=== PATIENT | male | born 1945 | race Caucasian/White ===

== ENCOUNTER 2018-09-07 07:26 | Day surgery (SDC) | payer MEDICARE, SELFPAY ==
[2018-09-07] VITALS (8 sets, daily range): BP systolic 102–162; BP diastolic 63–72; PULSE 62–72; RESP 10–16; TEMP 36.2–36.6; O2SAT 92–99; BMI 26.4
[2018-09-07] MEDS: SODIUM CHLORIDE 0.9% 1,000 ML 84 ML IV (08:00)
[2018-09-07] MEDS: MIDAZOLAM 5 MG/5 ML VIAL IV (08:22)
[2018-09-07] MEDS: fentaNYL 250 MCG/5 ML INJ IV (08:22)
--- NOTE | 2018-09-07 08:41 | PM.HP.1 ---
History of Present Illness Chief complaint: [id number] Colonoscopy Patient History Medical History Hypercholesterolemia (Acute) Meds Home Medications Medication Instructions Recorded Confirmed Type aspirin [Aspir-81] 81 mg PO DAILY #0 05/01/10 09/07/18 History simvastatin 20 mg PO QPM #0 05/01/10 09/07/18 History Allergies Allergy/AdvReac Type Severity Reaction Status Date / Time No Known Drug Allergies Allergy Verified 09/07/18 07:40 Exam Vital Signs (past 8 hours): - 09/07/18 07:51 Temperature 97.8 F Pulse Rate 72 Respiratory Rate 16 Blood Pressure 162/72 H Pulse Oximetry 96 Oxygen Delivery Method Room Air Narrative Exam Narrative: Chest clear to auscultation percussion cardiac exam reveals no S3 or murmur Oropharynx free of lesions Assessment & Plan Assessment & Plan narrative: Assessment: History of adenomatous colon polyps Plan: Colonoscopy today. Risks benefits alternatives have been explained.
--- NOTE | 2018-09-07 09:02 | PM.OP.ENDO ---
Operative Date/Time/Diagnoses Date of procedure: 09/07/18 Time of procedure: 09:02 Pre-op diagnosis: See indication and findings Procedure & Clinicians Study performed: Colonoscopy Same procedure as scheduled: Yes Indications: History of colon polyps Surgeon: Boo Sidhu Procedure Notes Procedure in detail: After informed consent was obtained the patient was placed in the left lateral decubitus position. The video colonoscope was introduced into the rectum slowly advanced to the cecum. Preparation was good. On slow withdrawal mucosa was carefully examined. The scope was removed. The patient tolerated the procedure well. Blood loss none Complications none Sedation Fentanyl 100 mcg Versed 5 mg IV titration Total sedation time 22 min Findings 1. Normal colonoscopy to cecum other than rare scattered diverticula. If he in fact has a history of colon polyps he should have 1 final colonoscopy 5 years from now. Cc: Dr. Spence
--- NOTE | 2018-09-07 09:18 | SUR.PHASEI ---
Right hearing aid in place on arrival; left hearing aid returned/placed by patient. Sitting up, tolerated fluids well, oriented. VSS
--- NOTE | 2018-09-07 09:26 | SUR.PHASEI ---
patient doesn't know what his normal blood pressure is. HOB up 45%, denies dizziness/lightheadedness.
--- NOTE | 2018-09-07 10:09 | SUR.PHASEII ---
BP significantly lower than Preop however is without s/s of problem when asked. Awaiting okay from Dr Sidhu to discharge.
--- NOTE | 2018-09-07 10:27 | SUR.PHASEII ---
Spoke with Dr Sidhu about VS and he gives order to discharge the patient.
== END 2018-09-07 10:31 | disposition home or self-care (01) ==
PROVIDERS: PCP Internal Medicine; Visit Provider Internal Medicine Gastroenterology
PROC: 0DJD8ZZ Inspection of Lower Intestinal Tract, Via Natural or Artificial Opening Endoscopic (ICD-10-PCS; CPT 45378; principal; 2018-09-07 08:30)
DX: Z86.010 Personal history of colon polyps (principal); K57.30 Diverticulosis of large intestine without perforation or abscess without bleeding; E78.00 Pure hypercholesterolemia, unspecified
CPT/HCPCS: G0105; J2250; J3010

== ENCOUNTER → 2020-10-15 09:22 | Outpatient (CLI) | payer MEDICARE, SELFPAY ==
--- NOTE | 2020-10-15 09:23 | DI.US.S_ITS ---
PROCEDURE: US RETRO PERITONEAL LIMITED INDICATIONS: HX SMOKING TECHNIQUE: Real time scanning was performed of the aorta and iliac arteries, with image documentation. COMPARISON: [facility], , ABD AORTA ANEURYSM SCREENING, 07/04/2015, 14:55. FINDINGS: Aorta: Proximal aortic diameter measures 2.3 cm. Mid-aorta measures 1.6 cm. Distal aortic diameter is 1.6 cm. Iliac arteries: Right common iliac artery measures 0.9 cm. Left common iliac artery measures 1.1 cm. IMPRESSION: No sonographic evidence of abdominal aortic aneurysm. Dictated by: Navya Barbosa MD, PhD on 10/15/2020 at 17:43 Approved by: Navya Barbosa MD, PhD on 10/15/2020 at 17:44
== END ==
PROVIDERS: PCP Student in an Organized Health Care Education/Training Program; Referring Provider Student in an Organized Health Care Education/Training Program; Visit Provider Student in an Organized Health Care Education/Training Program
DX: I77.811 Abdominal aortic ectasia (principal); Z87.891 Personal history of nicotine dependence
CPT/HCPCS: 76775

== ENCOUNTER → 2020-10-16 08:06 | Outpatient (CLI) | payer MEDICARE, SELFPAY ==
[2020-10-16] MEDS: COVID-19 VACC #1, MRNA(MOD) 100 MCG/0.5 ML VIAL IM (08:11)
== END ==
PROVIDERS: PCP Student in an Organized Health Care Education/Training Program; Visit Provider Internal Medicine
DX: Z23 Encounter for immunization (principal)
CPT/HCPCS: 0011A; 91301

== ENCOUNTER → 2020-11-13 07:57 | Outpatient (CLI) | payer MEDICARE, SELFPAY ==
[2020-11-13] MEDS: COVID-19 VACC #2, MRNA(MOD) 100 MCG/0.5 ML VIAL IM (08:03)
== END ==
PROVIDERS: PCP Student in an Organized Health Care Education/Training Program; Visit Provider Internal Medicine
DX: Z23 Encounter for immunization (principal)
CPT/HCPCS: 0012A; 91301

== ENCOUNTER → 2020-11-15 07:01 | Outpatient (CLI) | payer MEDICARE, SELFPAY ==
[2020-11-15 07:54] LABS: Cholesterol 192 mg/dL (140-199); HDL Cholesterol 45 mg/dL (40-60); LDL Cholesterol Calculated 121 mg/dL (<100); Triglycerides 131 mg/dL (35-150)
[2020-11-15 08:27] LABS: Prostate Specific Antigen < 0.064 ng/mL (0.10-4.00)
== END ==
PROVIDERS: PCP Student in an Organized Health Care Education/Training Program; Referring Provider Student in an Organized Health Care Education/Training Program; Visit Provider Student in an Organized Health Care Education/Training Program
DX: E78.00 Pure hypercholesterolemia, unspecified (principal); Z85.46 Personal history of malignant neoplasm of prostate
CPT/HCPCS: 36415; 80061; 84153

== ENCOUNTER → 2021-10-14 08:18 | Outpatient (CLI) | payer MEDICARE, SELFPAY ==
--- NOTE | 2021-10-14 08:19 | DI.RAD.S_ITS ---
PROCEDURE: XR HAND RT MIN 3V INDICATIONS: nodule right, 3rd MCP TECHNIQUE: 3 views of the hand(s) acquired. COMPARISON: None. FINDINGS: Bones: No fractures or dislocations. Mild osteoarthritic changes are noted throughout right hand and wrist joints. No gross bony erosive changes. Carpal bones are normally aligned. No suspicious bony lesions. Soft tissues: No suspicious soft tissue calcifications. IMPRESSION: Right hand and wrist joint osteoarthritis. No fracture or dislocation. No gross erosive changes. No gross soft tissue abnormality. Dictated by: Davide Hooks M.D. on 10/14/2021 at 9:47 Approved by: Davide Hooks M.D. on 10/14/2021 at 9:48
== END ==
PROVIDERS: PCP Family Medicine; Referring Provider Family Medicine; Visit Provider Family Medicine
DX: M19.041 Primary osteoarthritis, right hand (principal); M19.031 Primary osteoarthritis, right wrist; R22.31 Localized swelling, mass and lump, right upper limb
CPT/HCPCS: 73130

== ENCOUNTER → 2022-07-03 08:05 | Outpatient (CLI) | payer MEDICARE, SELFPAY | PROVIDERS: PCP Family Medicine; Visit Provider Nurse Practitioner Family | DX: N39.0 Urinary tract infection, site not specified (principal) | CPT/HCPCS: 87077; 87086; 87186 ==

== ENCOUNTER → 2023-01-05 07:12 | Outpatient (CLI) | payer MEDICARE, SELFPAY ==
[2023-01-05 07:48] LABS: Add Manual Diff / Slide Review NO; Basophils Absolute Auto 100 /uL (0-100); Basophils Percent Auto 0.9 % (0-2); Eosinophils Absolute Auto 100 /uL (0-450); Eosinophils Percent Auto 1.7 % (2-4); Hematocrit 45.5 % (41-53); Hemoglobin 15.4 g/dL (13.5-17.5); Lymphocytes Absolute Auto 1400 /uL (1100-4500); Lymphocytes Percent Auto 24.4 % (25-40); Mean Corpuscular HGB Conc 33.8 % (30-36); Mean Corpuscular Hemoglobin 30.3 PG (26-34); Mean Corpuscular Volume 89.8 fL (80-100); Monocytes Absolute Auto 600 /uL (0-900); Neutrophils Absolute Auto 3600 /uL (1500-7000); Platelet Count 173 X10^3/uL (150-400); Red Blood Cell Count 5.07 X10^6/uL (4.5-5.9); Red Cell Distribution Width 14.9 % (11.6-14.8); White Blood Cell Count 5.7 X10^3/uL (4.5-11.0)
[2023-01-05 08:39] LABS: Alanine Aminotransferase 34 IU/L (<50); Albumin 4.3 g/dL (3.5-5.0); Albumin Globulin Ratio 1.5 (1.0-2.8); Alkaline Phosphatase 59 U/L (38-126); Aspartate Aminotransferase 27 IU/L (17-59); Bilirubin Total 0.8 mg/dL (0.2-1.3); Blood Urea Nitrogen 24 mg/dL (9-20); Calcium 8.9 mg/dL (8.4-10.2); Carbon Dioxide 29 mmol/L (22-32); Chloride 100 mmol/L (98-107); Cholesterol 172 mg/dL (140-199); Estimated Glomerular Filt Rate > 60 mL/min (>60); Globulin 2.8 g/dL (1.7-4.1); Glucose 100 mg/dL (80-110); HDL Cholesterol 62 mg/dL (40-60); HEMOLYSIS < 15 (0-50); LDL Cholesterol Calculated 93 mg/dL (<100); Potassium 4.1 mmol/L (3.4-5.1); Sodium 138 mmol/L (137-145); Total Protein 7.1 g/dL (6.3-8.2); Triglycerides 87 mg/dL (35-150)
[2023-01-05 09:09] LABS: TSH w/ Reflex to FT4 3.99 uIU/mL (0.47-4.68)
[2023-01-05 09:12] LABS: Prostate Specific Antigen Scrn < 0.064 ng/mL (0.1-4.0)
== END ==
PROVIDERS: PCP Family Medicine; Referring Provider Family Medicine; Visit Provider Family Medicine
DX: E78.00 Pure hypercholesterolemia, unspecified (principal); Z12.5 Encounter for screening for malignant neoplasm of prostate; I77.811 Abdominal aortic ectasia; I87.2 Venous insufficiency (chronic) (peripheral); R20.2 Paresthesia of skin
CPT/HCPCS: 36415; 80053; 80061; 84443; 85025; G0103

== ENCOUNTER → 2023-05-26 08:43 | Outpatient (CLI) | payer MEDICARE, SELFPAY ==
[2023-05-26 09:26] LABS: Add Manual Diff / Slide Review NO; Basophils Absolute Auto 0 /uL (0-100); Basophils Percent Auto 0.6 % (0-2); Eosinophils Absolute Auto 100 /uL (0-450); Eosinophils Percent Auto 1.7 % (2-4); Hematocrit 44.8 % (41-53); Hemoglobin 15.3 g/dL (13.5-17.5); Lymphocytes Absolute Auto 1100 /uL (1100-4500); Lymphocytes Percent Auto 21.2 % (25-40); Mean Corpuscular HGB Conc 34.2 % (30-36); Mean Corpuscular Hemoglobin 30.4 PG (26-34); Mean Corpuscular Volume 88.8 fL (80-100); Monocytes Absolute Auto 600 /uL (0-900); Monocytes Percent Auto 11.5 % (3-14); Neutrophils Absolute Auto 3500 /uL (1500-7000); Platelet Count 171 X10^3/uL (150-400); Red Blood Cell Count 5.04 X10^6/uL (4.5-5.9); White Blood Cell Count 5.4 X10^3/uL (4.5-11.0)
[2023-05-26 09:41] LABS: Alanine Aminotransferase 32 IU/L (<50); Albumin 4.3 g/dL (3.5-5.0); Albumin Globulin Ratio 1.5 (1.0-2.8); Alkaline Phosphatase 53 U/L (38-126); Aspartate Aminotransferase 26 IU/L (17-59); BUN Creatinine Ratio 30.6 (6-22); Blood Urea Nitrogen 26 mg/dL (9-20); Calcium 9.5 mg/dL (8.4-10.2); Carbon Dioxide 30 mmol/L (22-32); Chloride 101 mmol/L (98-107); Estimated Glomerular Filt Rate > 60 mL/min (>60); Globulin 2.8 g/dL (1.7-4.1); Glucose 103 mg/dL (80-110); HEMOLYSIS < 15 (0-50); Potassium 4.6 mmol/L (3.4-5.1); Sodium 138 mmol/L (137-145); Total Protein 7.1 g/dL (6.3-8.2)
== END ==
PROVIDERS: PCP Family Medicine; Referring Provider Family Medicine; Visit Provider Family Medicine
DX: E78.00 Pure hypercholesterolemia, unspecified (principal); F43.9 Reaction to severe stress, unspecified; I77.811 Abdominal aortic ectasia
CPT/HCPCS: 36415; 80053; 85025

== ENCOUNTER → 2023-06-17 17:11 | Outpatient (CLI) | payer MEDICARE, SELFPAY ==
[2023-06-17 20:39] LABS: Appearance Urine UA CLEAR; Bilirubin Urine UA NEGATIVE (NEGATIVE); Color Urine UA YELLOW; Glucose Urine UA NEGATIVE (Negative); Ketones Urine UA NEGATIVE (NEGATIVE); Leukocyte Esterase Urine UA NEGATIVE (NEGATIVE); Nitrite Urine UA NEGATIVE (Negative); Occult Blood Urine UA TRACE-INTACT (Negative); Protein Urine UA NEGATIVE (Negative); Specific Gravity Urine UA 1.025 (1.000-1.035); Urobilinogen Urine UA 0.2 E.U./dL (0.2); pH Urine UA 5.5 (4.5-8.0)
[2023-06-17 20:52] LABS: Bacteria Urine None Seen; Culture Indicated Urine Cult Not Indicated; RBC Urine 1-5/HPF (0-5/HPF); Squamous Epithelial Cell Urine 0-1 /HPF (0-5/HPF); WBC Urine 0-1/HPF (0-5/HPF)
== END ==
PROVIDERS: PCP Family Medicine; Referring Provider Family Medicine; Visit Provider Family Medicine
DX: R35.0 Frequency of micturition (principal)
CPT/HCPCS: 81001

== ENCOUNTER → 2023-06-23 13:42 | Outpatient (CLI) | payer MEDICARE, SELFPAY | PROVIDERS: PCP Family Medicine; Referring Provider Family Medicine; Visit Provider Family Medicine | DX: R00.2 Palpitations (principal) | CPT/HCPCS: 93242 ==

== ENCOUNTER → 2023-07-13 12:27 | Outpatient (CLI) | payer MEDICARE, SELFPAY ==
--- NOTE | 2023-07-13 12:28 | DI.ECHO.S_ITS ---
[facility]---------+ [facility] +---------+ : : [address] : [place] [address] : : : : [id number] : : : : Phone: [phone]+ Echocardiogram Report + + :Name: JAYDON MENDOZA Study Date: 07/13/2023 Height: 70 in : :[facility] ReadingLocation: Weight: 200 lb : : Gender: Male BSA: 2.1 m2 : :: 1945 Age: 78 yrs BP: 159/76 mmHg: :Reason For Study: Murmur : : Performed By: Cecily Montelongo : :Referring: ANSELMO SHEA : + + Interpretation Summary 1) Borderline enlarged left ventricle with low normal sysotlic function (EF 50-55%). 2) Mildly enlarged right ventricle with normal function. 3) There is mild aortic stenosis (valve area 1.6cm2, mean gradient 6.5mmHg, severity ratio 0.46). 4) There is mild aortic regurgitation. 5) The aortic root is mildly dilated at 4.3cm. 6) No prior Echo available for comparison. Procedure: A two-dimensional transthoracic echocardiogram with color flow and Doppler was performed. The study quality was technically adequate. There is no prior echocardiogram noted for this patient. The heart rate ranged between 67-70 bpm during the study. Left Ventricle: The left ventricle is borderline dilated. There is normal left ventricular wall thickness. The ejection fraction is estimated to be 50- 55%. There are no focal wall motion abnormalities. Diastolic parameters suggest probable normal left ventricular diastolic function and normal filling pressures. Right Ventricle: The right ventricle is mildly dilated. The right ventricular systolic function is normal. Atria: The left atrial size is normal. Right atrial size is normal. The interatrial septum grossly appears intact with no obvious evidence for an atrial septal defect. Mitral Valve: The mitral valve is grossly normal. There is a flat closure plane of the the mitral valve leaflets. There is no mitral regurgitation noted. Aortic Valve: The aortic valve is moderately calcified. There is mildly reduced leaflet mobility. The aortic valve area is 1.6 centimeters squared by planimetry. The peak aortic velocity is 1.7 m/sec. There is mild aortic stenosis. There is mild aortic regurgitation. Tricuspid Valve: The tricuspid valve leaflets are thin and pliable. The tricuspid valve leaflets are thickened and/or calcified, but open well. There is a trace or physiologic amount of tricuspid regurgitation. Pulmonic Valve: The pulmonic valve is not well seen, but is grossly normal. There is a trace or physiologic amount of pulmonic regurgitation. Great Vessels: The aortic root is mildly dilated. The ascending aorta is normal in size. The aortic arch is normal in size. The IVC is of normal diameter and collapses greater than 50% with a sniff. This suggests a low right atrial pressure of 3 mm Hg. Pericardium/ Pleura There is no pericardial effusion. There is no pleural effusion. MMode/2D Measurements & Calculations LVIDd: 5.6 cm LVOT diam: 2.1 cm LVIDs: 3.8 cm Ao root diam: 4.3 cm FS: 31.5 % asc Aorta Diam: 3.3 cm EPSS: 0.69 cm Ao Arch Diam (Prox Trans): 2.8 cm IVSd: 1.1 cm LVPWd: 0.85 cm LV allred. diameter/BSA (cm/m^2): 2.7 LV sys. diameter/BSA (cm/m^2): 1.8 LA A2 area: 22.3 cm2 RA long axis: 5.3 cm LA A4 area: 19.9 cm2 RA area: 20.4 cm2 LA length (vol): 5.6 cm RA vol: 66.6 ml LA vol: 66.7 ml RA : 31.9 ml/m2 LA vol index: 31.9 ml/m2 IVC diam: 1.7 cm RVD1 (basal): 3.3 cm TAPSE: 2.5 cm Doppler Measurements & Calculations Ao V2 max: 171.7 cm/sec LVOT Max Jorge: 79.6 cm/sec Ao V2 mean: 118.8 cm/sec LV V1 max P.5 mmHg Ao max P.8 mmHg LV V1 VTI: 18.2 cm Ao mean P.5 mmHg KARAN(I,D): 1.6 cm2 Ao V2 VTI: 40.0 cm KARAN(V,D): 1.6 cm2 sev ratio: 0.46 KARAN indexed to BSA (cm^2/m^2): 0.77 MV E max jorge: 67.1 cm/sec PA V2 max: 69.2 cm/sec MV A max jorge: 88.5 cm/sec PA V2 mean: 49.4 cm/sec MV E/A: 0.76 PA mean P.1 mmHg Med Peak E' Jorge: 7.4 cm/sec PA pr(Accel): 31.0 mmHg E/E' med: 9.0 Lat Peak E' Jorge: 6.7 cm/sec E/E' lat: 10.0 E/e' average: 9.5 MV dec time: 0.31 sec SV(OT): 64.1 ml Reading Physician:02:57 PM
== END ==
PROVIDERS: PCP Family Medicine; Referring Provider Family Medicine; Visit Provider Family Medicine
DX: I77.810 Thoracic aortic ectasia (principal); R03.0 Elevated blood-pressure reading, without diagnosis of hypertension; I35.2 Nonrheumatic aortic (valve) stenosis with insufficiency; R00.2 Palpitations; F43.9 Reaction to severe stress, unspecified
CPT/HCPCS: 93306

== ENCOUNTER → 2024-01-16 10:55 | Outpatient (CLI) | payer MEDICARE, SELFPAY | PROVIDERS: PCP Family Medicine; Visit Provider Physician Assistant Surgical | DX: R10.9 Unspecified abdominal pain (principal) | CPT/HCPCS: 87077; 87086; 87186 ==

== ENCOUNTER → 2024-05-22 06:41 | Outpatient (CLI) | payer MEDICARE, SELFPAY ==
--- NOTE | 2024-05-22 06:42 | DI.ECHO.S_ITS ---
[facility] +---------+ Hospital : : [address] : : [place] : : [id number] : : Phone: [phone] Echocardiogram Report + + :Name: JAYDON MENDOZA Study Date: 05/22/2024 Height: 70 in : :Hospital ReadingLocation: Weight: 200 lb : : Gender: Male BSA: 2.1 m2 : :: 1945 Age: 79 yrs BP: 139/71 mmHg: :Reason For Study: DILATED AORTIC ROOT : :Ordering Physician: MONSE, : :ANSELMO Performed By: Hollie Beasley : :Referring: ANSELMO SHEA : + + Interpretation Summary Mildly dilated left ventricle with ejection fraction 50-55%. There is no hemodynamically significant valvular aortic stenosis. Mild aortic regurgitation. Mild mitral annular calcification. The aortic root is mildly dilated (4.3 cm) Comparison is made with the echocardiogram of 07/13/2023, no significant change. Procedure: A two-dimensional transthoracic echocardiogram with color flow and Doppler was performed. The study quality was technically adequate. Comparison is made with the echocardiogram of 07/13/2023. The patient was in sinus rhythm with heart rates between 61-75 bpm during the exam. Left Ventricle: The left ventricle is mildly dilated. There is normal left ventricular wall thickness. The ejection fraction is estimated to be 50-55%. There are no focal wall motion abnormalities. Diastolic parameters suggest probable normal left ventricular diastolic function and normal filling pressures. Right Ventricle: The right ventricle is normal in size and function. Atria: The left atrial size is normal. Right atrial size is normal. There is no Doppler evidence for an interatrial shunt. Mitral Valve: There is mild mitral annular calcification. There is no mitral regurgitation noted. Aortic Valve: The aortic valve is moderately calcified. There is mildly reduced leaflet mobility. There is no hemodynamically significant valvular aortic stenosis. The peak aortic velocity is 1.6 m/sec. The aortic valve mean gradient is 6 mmHg. The calculated aortic valve area is 1.9 cm2. There is mild aortic regurgitation. Tricuspid Valve: The tricuspid valve is normal in structure and function. There is a trace or physiologic amount of tricuspid regurgitation. Pulmonary artery pressures cannot be estimated because of the lack of a measurable TR jet velocity. Pulmonic Valve: The pulmonic valve leaflets are thin and pliable; valve motion is normal. There is trace pulmonic regurgitation. Great Vessels: The aortic root is mildly dilated. The dimensions of the ascending aorta are normal. The IVC is of normal diameter and collapses greater than 50% with a sniff. This suggests a low right atrial pressure of 3 mm Hg. Pericardium/ Pleura There is no pericardial effusion. There is no pleural effusion. MMode/2D Measurements & Calculations LVIDd: 6.0 cm LVOT diam: 2.2 cm LVIDs: 4.8 cm Ao root diam: 4.3 cm FS: 20.2 % asc Aorta Diam: 3.6 cm EPSS: 0.82 cm Ao Arch Diam (Prox Trans): 2.1 cm IVSd: 0.92 cm LVPWd: 0.79 cm LV allred. diameter/BSA (cm/m^2): 2.9 LV sys. diameter/BSA (cm/m^2): 2.3 LA A2 area: 20.7 cm2 RA long axis: 5.2 cm LA A4 area: 18.1 cm2 RA area: 18.3 cm2 LA length (vol): 5.3 cm RA vol: 54.6 ml LA vol: 59.9 ml RA : 26.2 ml/m2 LA vol index: 28.7 ml/m2 IVC diam: 1.8 cm RVD1 (basal): 4.2 cm RVD2 (mid): 3.3 cm TAPSE: 2.6 cm Doppler Measurements & Calculations Ao V2 max: 156.7 cm/sec LVOT Max Jorge: 74.2 cm/sec Ao V2 mean: 108.9 cm/sec LV V1 max P.2 mmHg Ao max P.8 mmHg LV V1 VTI: 16.3 cm Ao mean P.7 mmHg KARAN(I,D): 1.8 cm2 Ao V2 VTI: 36.1 cm KARAN(V,D): 1.9 cm2 sev ratio: 0.45 KARAN indexed to BSA (cm^2/m^2): 0.85 MV E max jorge: 57.5 cm/sec PA V2 max: 84.1 cm/sec MV A max jorge: 71.9 cm/sec PA V2 mean: 65.6 cm/sec MV E/A: 0.80 PA mean P.8 mmHg Med Peak E' Jorge: 6.6 cm/sec PA pr(Accel): 41.3 mmHg E/E' med: 8.7 Lat Peak E' Jorge: 6.4 cm/sec E/E' lat: 9.0 E/e' average: 8.8 MV dec time: 0.24 sec SV(LVOT): 64.2 ml Electronically signed by: mEanuel Issa on Reading Physician:05/22/2024 08:31 AM
== END ==
LOC: ECHO 06:41
PROVIDERS: PCP Family Medicine; Referring Provider Family Medicine; Visit Provider Family Medicine
DX: I77.810 Thoracic aortic ectasia (principal); I34.81 Nonrheumatic mitral (valve) annulus calcification; I35.1 Nonrheumatic aortic (valve) insufficiency
CPT/HCPCS: 93306

== ENCOUNTER → 2024-06-09 07:06 | Outpatient (CLI) | payer MEDICARE, SELFPAY ==
[2024-06-09 08:01] LABS: Add Manual Diff / Slide Review NO; Basophils Absolute Auto 0 /uL (0-100); Basophils Percent Auto 0.8 % (0-2); Eosinophils Absolute Auto 100 /uL (0-450); Eosinophils Percent Auto 1.9 % (2-4); Hematocrit 49.4 % (41-53); Hemoglobin 16.4 g/dL (13.5-17.5); Lymphocytes Absolute Auto 1100 /uL (1100-4500); Lymphocytes Percent Auto 22.5 % (25-40); Mean Corpuscular HGB Conc 33.2 % (30-36); Mean Corpuscular Volume 90.4 fL (80-100); Monocytes Absolute Auto 600 /uL (0-900); Monocytes Percent Auto 12.2 % (3-14); Neutrophils Absolute Auto 3100 /uL (1500-7000); Neutrophils Percent Auto 62.6 % (50-75); Platelet Count 190 X10^3/uL (150-400); Red Blood Cell Count 5.46 X10^6/uL (4.5-5.9); Red Cell Distribution Width 15.1 % (11.6-14.8)
[2024-06-09 08:26] LABS: Alanine Aminotransferase 33 IU/L (<50); Albumin 4.5 g/dL (3.5-5.0); Albumin Globulin Ratio 1.7 (1.0-2.8); Alkaline Phosphatase 62 U/L (38-126); Aspartate Aminotransferase 29 IU/L (17-59); BUN Creatinine Ratio 23.2 (6-22); Blood Urea Nitrogen 22 mg/dL (9-20); Calcium 9.5 mg/dL (8.4-10.2); Carbon Dioxide 28 mmol/L (22-32); Chloride 104 mmol/L (98-107); Cholesterol 255 mg/dL (140-199); Estimated Glomerular Filt Rate > 60 mL/min (>60); Globulin 2.6 g/dL (1.7-4.1); Glucose 107 mg/dL (80-110); HDL Cholesterol 57 mg/dL (40-60); HEMOLYSIS < 15 (0-50); LDL Cholesterol Calculated 178 mg/dL (<100); Potassium 4.3 mmol/L (3.4-5.1); Sodium 139 mmol/L (137-145); Total Protein 7.1 g/dL (6.3-8.2); Triglycerides 98 mg/dL (35-150)
[2024-06-09 08:49] LABS: TSH w/ Reflex to FT4 3.53 uIU/mL (0.47-4.68)
[2024-06-09 08:50] LABS: Prostate Specific Antigen Scrn 0.071 ng/mL (0.1-4.0)
[2024-06-10 04:36] LABS: Apolipoprotein B 120 mg/dL (<90)
== END ==
PROVIDERS: PCP Family Medicine; Referring Provider Family Medicine; Visit Provider Family Medicine
DX: I87.2 Venous insufficiency (chronic) (peripheral) (principal); E78.00 Pure hypercholesterolemia, unspecified; Z12.5 Encounter for screening for malignant neoplasm of prostate; Z85.46 Personal history of malignant neoplasm of prostate; I77.811 Abdominal aortic ectasia
CPT/HCPCS: 36415; 80053; 80061; 82172; 84443; 85025; G0103

== ENCOUNTER → 2024-08-03 13:48 | Outpatient (CLI) | payer MEDICARE, SELFPAY | PROVIDERS: PCP Family Medicine; Visit Provider Nurse Practitioner Family | DX: R30.0 Dysuria (principal) | CPT/HCPCS: 87077; 87086; 87186 ==

== ENCOUNTER → 2025-05-10 08:06 | Outpatient (CLI) | payer MEDICARE, SELFPAY ==
[2025-05-10 09:22] LABS: Add Manual Diff / Slide Review NO; Hematocrit 46.2 % (41-53); Hemoglobin 15.7 g/dL (13.5-17.5); Lymphocytes Absolute Auto 1300 /uL (1100-4500); Mean Corpuscular HGB Conc 33.9 % (30-36); Mean Corpuscular Hemoglobin 30.3 PG (26-34); Mean Corpuscular Volume 89.4 fL (80-100); Platelet Count 175 X10^3/uL (150-400)
[2025-05-10 09:42] LABS: Alanine Aminotransferase 33 IU/L (<50); Albumin 4.4 g/dL (3.5-5.0); Albumin Globulin Ratio 1.6 (1.0-2.8); Alkaline Phosphatase 61 U/L (38-126); Blood Urea Nitrogen 21 mg/dL (9-20); Calcium 9.0 mg/dL (8.4-10.2); Carbon Dioxide 25 mmol/L (22-32); Chloride 103 mmol/L (98-107); Cholesterol 151 mg/dL (140-199); Estimated Glomerular Filt Rate > 60 mL/min (>60); Globulin 2.7 g/dL (1.7-4.1); Glucose 95 mg/dL (70-99); HDL Cholesterol 52 mg/dL (40-60); HEMOLYSIS < 15 (0-50); Potassium 4.1 mmol/L (3.4-5.1); Sodium 138 mmol/L (137-145); Total Protein 7.1 g/dL (6.3-8.2); Triglycerides 82 mg/dL (35-150)
[2025-05-10 10:11] LABS: TSH w/ Reflex to FT4 5.14 uIU/mL (0.47-4.68)
[2025-05-10 10:35] LABS: Free T4, Direct Thyroxine 1.17 ng/dL (0.78-2.19)
[2025-05-10 11:14] LABS: Microalbumi Creatinin Ratio Ur 107.0 ug/mg CR (<30)
== END ==
PROVIDERS: PCP Family Medicine; Referring Provider Family Medicine; Visit Provider Family Medicine
DX: E78.00 Pure hypercholesterolemia, unspecified (principal); Z12.5 Encounter for screening for malignant neoplasm of prostate; I83.93 Asymptomatic varicose veins of bilateral lower extremities
CPT/HCPCS: 36415; 80053; 80061; 82043; 82172; 82570; 84439; 84443; 85025; G0103

== ENCOUNTER → 2025-05-23 06:57 | Outpatient (CLI) | payer MEDICARE, SELFPAY | LOC: ECHO 06:58 | PROVIDERS: PCP Family Medicine; Referring Provider Family Medicine; Visit Provider Family Medicine | DX: I35.8 Other nonrheumatic aortic valve disorders (principal); I77.810 Thoracic aortic ectasia; I77.811 Abdominal aortic ectasia | CPT/HCPCS: 93306; Q9957 ==